=== PATIENT | male | born 1995 | race Two or more races ===

== ENCOUNTER 2018-07-02 00:51 | Emergency (ER) | payer SELFPAY ==
[2018-07-02] MEDS ORDERED: oxyCODONE/Acetamin 5/325 MG* TAB PO ONE (01:24)
[2018-07-02] MEDS ORDERED: Ketorolac INJ* 60 MG/2 ML VIAL IM ONE (01:24)
[2018-07-02 02:12] LABS: Urine Appearance Clear; Urine Blood Negative (Negative); Urine Color Straw; Urine Ketones Negative (Negative); Urine Protein Negative (Negative); Urine Specific Gravity 1.008 (1.010-1.030); Urine Urobilinogen Negative (Negative)
--- NOTE | 2018-07-02 02:35 | ED ---
GI/ HPI - HPI Summary HPI Summary: This is jesus Yun documenting for attending Dr. Cornelio Samuels MD. Pt is 23 y/o M who presents to ED c/o bilateral testicular pain for 4 days. He first noticed the pain while on the elliptical working out 4 days ago. The pain was heightened today which he believes is because he walked a lot today. Rates his pain intensity as 7/10 in severity. Denies abdominal pain per nurses report. Last time sexually active was about 3 months ago. No trauma to the area recently. No medications or surgery history. - History of Current Complaint Chief Complaint: EDGeneral Time Seen by Provider: 07/02/18 01:15 Stated Complaint: TESTICULAR PAIN Hx Obtained From: Patient Onset/Duration: Started Days Ago, Still Present Current Severity: Moderate Pain Intensity: 7 Additional Locations for Males: Testicles Associated Signs and Symptoms: Positive: Negative - Abdominal Pain - Allergy/Home Medications Allergies/Adverse Reactions: Allergies Allergy/AdvReac Type Severity Reaction Status Date / Time No Known Allergies Allergy Verified 07/02/18 00:55 Home Medications: Home Medications NK [No Home Medications Reported] 07/02/18 [History Confirmed 07/02/18] PMH/Surg Hx/FS Hx/Imm Hx Sensory History: Denies: Hx Legally Blind EENT History: Denies: Hx Deafness Infectious Disease History: No Infectious Disease History: Denies: Traveled Outside the [place] in Last 30 Days - Family History Known Family History: Positive: Other - Social History Alcohol Use: Daily Alcohol Amount: today 2 shots and 2 glasses of wine per pt Substance Use Type: Reports: None Smoking Status (MU): Never Smoked Tobacco Review of Systems Negative: Abdominal Pain Positive: other - bilateral testicular pain All Other Systems Reviewed And Are Negative: Yes Physical Exam - Summary Physical Exam Summary: VITAL SIGNS: Reviewed. GENERAL: Patient is a well-developed and nourished male who is lying comfortable in the stretcher. Patient is not in any acute respiratory distress. HEAD AND FACE: No signs of trauma. No ecchymosis, hematomas or skull depressions. No sinus tenderness. EYES: PERRLA, EOMI x 2, No injected conjunctiva, no nystagmus. EARS: Hearing grossly intact. Ear canals and tympanic membranes are within normal limits. MOUTH: Oropharynx within normal limits. NECK: Supple, trachea is midline, no adenopathy, no JVD, no carotid bruit, no c- spine tenderness, neck with full ROM. CHEST: Symmetric, no tenderness at palpation LUNGS: Clear to auscultation bilaterally. No wheezing or crackles. CVS: Regular rate and rhythm, S1 and S2 present, no murmurs or gallops appreciated. ABDOMEN: Soft, non-tender. No signs of distention. No rebound no guarding, and no masses palpated. Bowel sounds are normal. TESTICLES: Mild bilateral testicular tenderness. No swelling or redness. Bilateral cremasteric reflex normal. Both testicles are same level no elevation. EXTREMITIES: FROM in all major joints, no edema, no cyanosis or clubbing. NEURO: Alert and oriented x 3. No acute neurological deficits. Speech is normal and follows commands. SKIN: Dry and warm Triage Information Reviewed: Yes Vital Signs On Initial Exam: Initial Vitals Temp Pulse Resp BP Pulse Ox 98.1 F 74 16 125/66 98 07/02/18 00:52 07/02/18 00:52 07/02/18 00:52 07/02/18 00:52 07/02/18 00:52 Vital Signs Reviewed: Yes Diagnostics - Vital Signs Vital Signs Temp Pulse Resp BP Pulse Ox 07/02/18 00:52 98.1 F 74 16 125/66 98 - Laboratory Lab Results: Lab Results 07/02/18 Range/Units 01:57 Urine Color Straw Urine Appearance Clear Urine pH 6.0 (5-9) Ur Specific B[place] 1.008 L (1.010-1.030) Urine Protein Negative (Negative) Urine Ketones Negative (Negative) Urine Blood Negative (Negative) Urine Nitrate Negative (Negative) Urine Bilirubin Negative (Negative) Urine Urobilinogen Negative (Negative) Ur Leukocyte Esterase Negative (Negative) Urine Glucose Negative (Negative) Lab Statement: Any lab studies that have been ordered have been reviewed, and results considered in the medical decision making process. GIGU Course/Dx - Course Course Of Treatment: Pt is 23 y/o M who presents to ED c/o bilateral testicular pain for 4 days. He first noticed the pain while on the elliptical working out 4 days ago. The pain was heightened today which he believes is because he walked a lot today. Denies abdominal pain per nurses report. Physical exam revealed mild bilateral testicular tenderness with no swelling or redness, bilateral cremasteric reflex normal, and both testicles are same level with no elevation. In ED course pt was given Percocet and Toradol. Pt is diagnosed with testicular pain and discharged. He is told to follow up with urology and use motrin as needed, and pt is agreeable with this plan. - Diagnoses Provider Diagnoses: Testicular pain Discharge - Sign-Out/Discharge Documenting (check all that apply): Patient Departure - Discharge - Discharge Plan Condition: Stable Disposition: HOME Patient Education Materials: Testicle Pain (ED) Referrals: [facility] [Outside] - 2 Days Preston Diaz MD [Medical Doctor] - 2 Days Additional Instructions: Follow up with urologist. RETURN TO ED FOR ANY NEW OR WORSENING SYMPTOMS.
[2018-07-02 02:49] VITALS: BP 112/63
== END 2018-07-02 02:49 | disposition home or self-care (01) ==
LOC: ED 00:51
DX: N50.812 Left testicular pain (principal); N50.811 Right testicular pain
CPT/HCPCS: 81003; 96372; 99282; A9270-GY; J1885